=== PATIENT | female | born 1960 | race Caucasian/White ===

== ENCOUNTER 2021-08-01 17:27 | Emergency (ER) | payer OTHER, SELFPAY ==
[2021-08-01 17:29] VITALS: BP 156/90; PULSE 94; RESP 16; TEMP 36.2; O2SAT 100; BMI 24.0
--- NOTE | 2021-08-01 17:53 | EX.ED.DYSGE1 ---
HPI History of Present Illness Chief Complaint: General Illness Informant: patient Narrative Narrative: Patient presents with concern for Covid. She is taking care of her significant other with Covid. 4 days ago she started with some nasal congestion. She has now developed mild soft stools but no nausea or vomiting. She has a slight nonproductive cough. No actual dyspnea. She has had low-grade fevers. She has myalgias and decreased energy. She is interested in monoclonal antibody therapy. She is frustrated that it is a Tuesday through Tuesday event. Past medical history: Her nodes, thyroid disease, borderline hypertension Allergies No recent surgeries Lives with significant other [facility] Home Medications ondansetron 4 mg PO Q8H PRN #10 tab 08/01/21 [Rx Last Taken Unknown] Allergy/AdvReac Type Severity Reaction Status Date / Time hydroxychloroquine Allergy Rash Verified 08/01/21 19:05 [From Plaquenil] Sulfa (Sulfonamide Allergy Rash Verified 08/01/21 19:05 Antibiotics) Social History Smoking Status: Never smoker ROS ROS ED Constitutional Constitutional ED: Reports chills, fever(s) and subjective Eyes Eyes: Denies blurry vision or change in vision ENT ENT ED: Reports rhinorrhea and sore throat Cardiovascular Cardiovascular: Denies chest pain or palpitations Respiratory/Chest Respiratory/Chest: Reports cough; Denies dyspnea or sputum Gastrointestinal Gastrointestinal: Reports diarrhea; Denies abdominal pain, nausea or vomiting Genitourinary Genitourinary ED: Denies dysuria or hematuria Musculoskeletal Musculoskeletal: Reports myalgias; Denies back pain or neck pain Integumentary Denies rash Neurologic Neurologic: Denies headache(s), paresthesias or weakness Endocrine Endocrinology: Denies polydipsia or polyuria Allergic/Immunologic Allergic/Immunologic ED: Denies urticaria EXAM Physical Exam Const Vital Signs: 08/01/21 17:29 Temperature 97.2 F L Temperature Source Temporal Pulse Rate 94 Respiratory Rate 16 Blood Pressure 156/90 H Blood Pressure Mean 112 Pulse Ox 100 Oxygen Delivery Method Room Air Patient sitting comfortably in the bed. She carrying on a conversation normally. No hypoxia. Positive well nourished and well developed General Appearance ED: well developed and NAD HEENT Reports moist mucous membranes Negative for trauma or tenderness Eyes General Eye ED: Negative for pale conjunctiva or scleral icterus Neck no JVD Chest Wall inspection of chest normal Resp normal respiratory effort and clear to auscultation bilaterally Effort and Inspection: Negative for pain with movement Auscultation: Negative for rales, rhonchi or wheezes Cardio regular rate, regular rhythm and no murmurs GI normal to inspection, nondistended, normoactive bowel sounds and non-tender Palpation: soft Back/Spine no CVA tenderness Extremity General Extremety ED: Negative for tenderness Neuro oriented x3 Sensorium / Orientation: alert Psych mental status grossly normal Skin no rashes or lesions noted and skin turgor normal MDM MDM MDM Narrative Medical decision making narrative: Patient's x-ray looked at by me showed no sign of acute process. A single view. I see no sign of Covid on the x-ray at this time. Covid test however is positive. I discussed this with the patient. She is frustrated that we cannot do monoclonal therapy here. I explained that many facilities do not even have it available. I will put in the order and leave message on the answering line. I will write for Zofran in case she develops nausea. We discussed reasons to return. Lab Data Attestation: I reviewed the patient's lab results. Discharge Plan Triage Chief Complaint: General Illness ED Provider: Geoff Robertson Dx/Rx/DC Orders Clinical Impression: COVID-19 Instructions: Caring for Someone Who Has COVID-19 Prescriptions: New ondansetron 4 mg tablet,disintegrating 4 mg PO Q8H PRN (Reason: nausea and vomiting) Qty: 10 RF: 0 Other Ambulatory Orders: COVID Outpatient Monoclonal Antibody Referral (Routine) Timeframe: 1 Day Facility: [facility] - Location: [facility] Ordered By: Dr. Geoff Robertson Primary Care Provider: Care Physician,No Primary Referrals: Gomez Aranda MD [STAFF PHYSICIAN] - 1 Week if not improving Care Physician,No Primary [Primary Care Provider] - Disposition Disposition: Home, Self Care
--- NOTE | 2021-08-01 18:22 | RAD_ITS ---
STUDY: X-RAY CHEST REASON FOR EXAM: Female, 60 years old. Cough, likley covid TECHNIQUE: Frontal portable view of the chest COMPARISON: None. FINDINGS: The lungs are clear and expanded. There is no demonstrated pleural abnormality. Normal size heart. Normal mediastinum and rafal. Normal visualized pulmonary arteries. Normal visualized aortic arch and descending thoracic aorta. Normal visualized thoracic spine. Normal visualized ribs, clavicles, and shoulders. There is no demonstrated abnormality of the visualized soft tissue structures of the upper abdomen. RAD/Chest 1 View (Portable) IMPRESSION: Normal x-ray examination of the chest. Electronically Signed: Kei Botello MD at 19:31 EDT Tel , Service support ,
[2021-08-01 19:03] VITALS: O2SAT 100
[2021-08-01 20:09] VITALS: BP 138/74; PULSE 87; RESP 16; O2SAT 95
== END 2021-08-01 19:30 | disposition home or self-care (01) ==
PROVIDERS: Emergency Provider Emergency Medicine
DX: U07.1 COVID-19 (principal); E07.9 Disorder of thyroid, unspecified; Z20.822 Contact with and (suspected) exposure to COVID-19; Z79.899 Other long term (current) drug therapy
CPT/HCPCS: 71045; 87426; 99282

== ENCOUNTER 2021-08-03 12:30 | Outpatient (CLI) | payer OTHER, SELFPAY ==
[2021-08-03 12:54] VITALS: BP 134/88; PULSE 73; RESP 16; TEMP 37.3; O2SAT 98; BMI 24.0
[2021-08-03] MEDS: 0.9% Saline Lock 10 ML Syringe IV (12:58)
[2021-08-03 13:27] VITALS: BP 135/75; PULSE 73; RESP 18; TEMP 37.2; O2SAT 98
[2021-08-03 14:26] VITALS: BP 134/73; PULSE 70; RESP 16; TEMP 37.4; O2SAT 98
== END 2021-08-03 14:27 | disposition home or self-care (01) ==
LOC: MS3OUT 12:32 → MS3 12:35
PROVIDERS: Referring Provider Nurse Practitioner Adult Health; Visit Provider Nurse Practitioner Adult Health
DX: Z23 Encounter for immunization (principal); U07.1 COVID-19
CPT/HCPCS: J7050; M0243; A4216; Q0244